=== PATIENT | female | born 1970 | race American Indian/Alaskan Native ===

== ENCOUNTER 2017-04-07 23:51 | Emergency (ER) | payer BC ==
[2017-04-08 01:33] LABS: Basophils % (Auto) 1.5 % (0.0-1.8); Eosinophils % (Auto) 1.9 % (0.0-4.3); Hematocrit 38.3 % (30.3-42.9); Hemoglobin 12.4 gm/dl (10.1-14.3); Mean Corpuscular HGB Conc 32 % (30-34); Mean Corpuscular Hemoglobin 26 pg (28-32); Mean Corpuscular Volume 82 fl (79-97); Platelet Count 176 K/mm3 (140-440); White Blood Count 7.4 K/mm3 (4.5-11.0)
[2017-04-08 01:49] LABS: Anion Gap 14 mmol/L; BUN/Creatinine Ratio 21.42; Blood Urea Nitrogen 15 mg/dL (7-17); Calcium 9.2 mg/dL (8.4-10.2); Carbon Dioxide 27 mmol/L (22-30); Chloride 104.7 mmol/L (98-107); Glucose 120 mg/dL (65-100); Sodium 142 mmol/L (137-145)
[2017-04-08] MEDS ORDERED: TORADOL IM ONE (03:24)
[2017-04-08] MEDS ORDERED: TYLENOL PO ONE (03:24)
--- NOTE | 2017-04-08 03:24 | Emergency Department Report ---
ED General Adult HPI - General Chief complaint: Extremity Injury, Lower Stated complaint: L FOOT PAIN Time Seen by Provider: 04/08/17 03:17 Source: patient, RN notes reviewed Mode of arrival: Ambulatory Limitations: No Limitations - History of Present Illness Initial comments: This is a 46-year-old female. She is previously unknown to me. She reports that she is not . She presents to the ER with left great toe pain and left dorsal toe pain. The pain is sharp. It increases with palpation and range of motion. It decreases with rest. She thinks the left toe is slightly more swollen than the right toe. There is no history of gout. There is no history of trauma. No fevers or chills. No headache, neck pain, chest pain, abdominal pain or shortness of breath. Patient reports no recent dietary indiscretions. -: Gradual Location: left, lower extremity Radiation: non-radiation Severity scale (0 -10): 8 Quality: aching Consistency: constant Improves with: rest Worsens with: movement Associated Symptoms: denies other symptoms - Related Data Home Medications Medication Instructions Recorded Confirmed Last Taken Amitriptyline [Elavil] 10 mg PO DAILY 04/08/17 04/08/17 1 Day Ago Propranolol HCl 80 mg PO BID 04/08/17 04/08/17 1 Day Ago Previous Rx's Medication Instructions Recorded Last Taken Type Acetaminophen [Tylenol Arthritis] 650 mg PO Q6HR PRN #30 tablet.er 04/08/17 Unknown Rx Doxycycline [Vibramycin CAP] 100 mg PO Q12HR #10 capsule 04/08/17 Unknown Rx Fluconazole [Diflucan TAB] 150 mg PO ONCE #2 tablet 04/08/17 Unknown Rx Ibuprofen [Motrin] 600 mg PO Q8H PRN #20 tablet 04/08/17 Unknown Rx Allergies Allergy/AdvReac Type Severity Reaction Status Date / Time codeine Allergy Unknown Verified 02/16/14 19:32 latex Allergy Rash Verified 02/16/14 19:32 metoclopramide HCl Allergy Unknown Verified 02/16/14 19:32 [From Reglan] pineapple [Pineapple] Allergy Swelling Verified 02/16/14 19:32 ED Review of Systems ROS: Stated complaint: L FOOT PAIN Other details as noted in HPI Constitutional: denies: fever Eyes: denies: eye discharge, vision change ENT: denies: epistaxis Respiratory: denies: cough Cardiovascular: denies: chest pain Gastrointestinal: denies: abdominal pain Genitourinary: as per HPI Musculoskeletal: arthralgia, myalgia Neurological: as per HPI ED Past Medical Hx - Past Medical History Hx Hypertension: Yes Hx Headaches / Migraines: Yes Additional medical history: IBS - Surgical History Hx Cholecystectomy: Yes Additional Surgical History: 2 c-sections, tubal, bilat knee surg. HYSTERECTOMY - Social History Smoking Status: Never Smoker Substance Use Type: None - Medications Home Medications: Home Medications Medication Instructions Recorded Confirmed Last Taken Type Acetaminophen [Tylenol Arthritis] 650 mg PO Q6HR PRN #30 tablet.er 04/08/17 Unknown Rx Amitriptyline [Elavil] 10 mg PO DAILY 04/08/17 04/08/17 1 Day Ago History Doxycycline [Vibramycin CAP] 100 mg PO Q12HR #10 capsule 04/08/17 Unknown Rx Fluconazole [Diflucan TAB] 150 mg PO ONCE #2 tablet 04/08/17 Unknown Rx Ibuprofen [Motrin] 600 mg PO Q8H PRN #20 tablet 04/08/17 Unknown Rx Propranolol HCl 80 mg PO BID 04/08/17 04/08/17 1 Day Ago History ED Physical Exam - General Limitations: No Limitations General appearance: alert, in no apparent distress - Head Head exam: Present: atraumatic, normocephalic - Eye Eye exam: Present: normal appearance, EOMI. Absent: nystagmus - ENT ENT exam: Present: normal exam, normal orophraynx, mucous membranes moist, normal external ear exam - Neck Neck exam: Present: normal inspection, full ROM - Respiratory Respiratory exam: Present: normal lung sounds bilaterally. Absent: respiratory distress, wheezes, rales, rhonchi, stridor - Cardiovascular Cardiovascular Exam: Present: regular rate, normal rhythm, normal heart sounds. Absent: systolic murmur, diastolic murmur, rubs, gallop - GI/Abdominal GI/Abdominal exam: Present: soft, normal bowel sounds. Absent: distended, tenderness, guarding, rebound, rigid - Extremities Exam Extremities exam: Present: tenderness (the compartments are soft. 2+ pulses are noted in 4 extremities. There is no redness, pus or streaking. The left great toe is somewhat tender on the dorsal aspect of the skin. No obvious cellulitis or abscess.), normal capillary refill, other. Absent: calf tenderness - Back Exam Back exam: Present: normal inspection, full ROM. Absent: tenderness, CVA tenderness (R), CVA tenderness (L), muscle spasm, paraspinal tenderness, vertebral tenderness - Neurological Exam Neurological exam: Present: alert, oriented X3, normal gait, other (Extraocular movements intact. Tongue midline. No facial droop. Facial sensation intact to light touch in the V1, V2, V3 distribution bilaterally. 5 and 5 strength in 4 extremities.. Sensation is intact to light touch in 4 extremities.). Absent : motor sensory deficit - Psychiatric Psychiatric exam: Present: normal affect, normal mood - Skin Skin exam: Present: warm, dry, intact, normal color. Absent: rash ED Course Vital Signs 04/08/17 04/08/17 00:12 04:14 Temperature 98.4 F 98.7 F Pulse Rate 86 66 Respiratory 18 18 Rate Blood Pressure 159/96 Blood Pressure 159/96 169/95 [Left] O2 Sat by Pulse 100 100 Oximetry ED Medical Decision Making - Lab Data Result diagrams: 04/08/17 01:18 04/08/17 01:18 Vital Signs 04/08/17 04/08/17 00:12 04:14 Temperature 98.4 F 98.7 F Pulse Rate 86 66 Respiratory 18 18 Rate Blood Pressure 159/96 Blood Pressure 159/96 169/95 [Left] O2 Sat by Pulse 100 100 Oximetry Lab Results 04/08/17 04/08/17 Range/Units 01:18 01:18 WBC 7.4 (4.5-11.0) K/mm3 RBC 4.70 (3.65-5.03) M/mm3 Hgb 12.4 (10.1-14.3) gm/dl Hct 38.3 (30.3-42.9) % MCV 82 (79-97) fl MCH 26 L (28-32) pg MCHC 32 (30-34) % RDW 14.0 (13.2-15.2) % Plt Count 176 (140-440) K/mm3 Lymph % (Auto) 23.1 (13.4-35.0) % [place] % (Auto) 9.3 H (0.0-7.3) % Eos % (Auto) 1.9 (0.0-4.3) % Baso % (Auto) 1.5 (0.0-1.8) % Lymph # 1.7 (1.2-5.4) K/mm3 [place] # 0.7 (0.0-0.8) K/mm3 Eos # 0.1 (0.0-0.4) K/mm3 Baso # 0.1 (0.0-0.1) K/mm3 Seg Neutrophils % 64.2 (40.0-70.0) % Seg Neutrophils # 4.7 (1.8-7.7) K/mm3 Sodium 142 (137-145) mmol/L Potassium 4.0 (3.6-5.0) mmol/L Chloride 104.7 (98-107) mmol/L Carbon Dioxide 27 (22-30) mmol/L Anion Gap 14 mmol/L BUN 15 (7-17) mg/dL Creatinine 0.7 (0.7-1.2) mg/dL Estimated GFR > 60 ml/min BUN/Creatinine Ratio 21.42 % Glucose 120 H (65-100) mg/dL Calcium 9.2 (8.4-10.2) mg/dL - Radiology Data Radiology results: image reviewed interpreted by me: X-ray of the left foot is negative for acute disease - Medical Decision Making Differential diagnosis: Arthritis, gout, cellulitis, ingrown toenail Assessment and plan: 46-year-old female with painful left toe. No history of gout. No recent dietary indiscretions. The toe is not especially warm. It is somewhat tender. The compartments are soft. They be early paronychia versus early ingrown toenail, versus early abscess versus arthritis. I don't with the patient will benefit from incision and drainage at this time. She will be made weightbearing as tolerated, hard sole shoe, crutches, pain medication, doxycycline to be given. Patient requested Diflucan. She will be instructed to follow-up with outpatient podiatry. Critical care attestation.: If time is entered above; I have spent that time in minutes in the direct care of this critically ill patient, excluding procedure time. ED Disposition Clinical Impression: Pain of left great toe Disposition: DC-01 TO HOME OR SELFCARE Is pt being admited?: No Does the pt Need Aspirin: No Condition: Stable Instructions: Acute Gouty Arthritis (ED), Rheumatoid Arthritis (ED), Arthralgia (ED) Additional Instructions: Take pain medication as directed. Take antibiotics as directed. Follow up with either an orthopedist or pricing strategist within the next week. Symptoms may be coming from gout, pseudogout, or early infection. Apply warm compresses to the affected area, and avoid strenuous physical activity. Return to the ER right away with new pain, worsened pain, migration of pain, fevers or chills, intractable nausea or vomiting, confusion, inability to tolerate liquid feeds. Wear loose fitting shoes. When taking the doxycycline, do not take on an empty stomach, and avoid exposure to sunlight. Prescriptions: Acetaminophen [Tylenol Arthritis] 650 mg PO Q6HR PRN #30 tablet.er PRN Reason: Pain Doxycycline [Vibramycin CAP] 100 mg PO Q12HR #10 capsule Fluconazole [Diflucan TAB] 150 mg PO ONCE #2 tablet Ibuprofen [Motrin] 600 mg PO Q8H PRN #20 tablet PRN Reason: Pain Referrals: PRIMARY CARE, [Primary Care Provider] - 3-5 Days JORDYN DOMINGUEZ DPM [Staff Physician] - 3-5 Days RAFAELA WANG DPM [Staff Physician] - 3-5 Days
[2017-04-08] MEDS ORDERED: TORADOL ONE (03:45)
[2017-04-08 04:15] VITALS: BP 169/95
--- NOTE | 2017-04-08 09:52 | XRay Report ---
LEFT FOOT, 3 VIEWS History: Left foot pain. Findings: Mild osteopenia is suspected. No acute osseous injury or joint pathology is appreciated. The soft tissues are unremarkable. Impression: Mild osteopenia. No acute process appreciated.
== END 2017-04-08 05:11 | disposition home or self-care (01) ==
LOC: ED 23:51
DX: M79.675 Pain in left toe(s) (principal); G43.909 Migraine, unspecified, not intractable, without status migrainosus; Z91.040 Latex allergy status; Z88.8 Allergy status to other drugs, medicaments and biological substances; Z91.018 Allergy to other foods
CPT/HCPCS: 36415; 73630; 80048; 85025; 96372; 99284; J1885

== ENCOUNTER 2017-04-09 21:19 | Emergency (ER) | payer BC ==
[2017-04-09 22:55] LABS: Basophils % (Auto) 0.6 % (0.0-1.8); Eosinophils % (Auto) 2.9 % (0.0-4.3); Hematocrit 40.2 % (30.3-42.9); Mean Corpuscular HGB Conc 32 % (30-34); Mean Corpuscular Hemoglobin 26 pg (28-32); Mean Corpuscular Volume 82 fl (79-97); Platelet Count 186 K/mm3 (140-440); Red Blood Count 4.93 M/mm3 (3.65-5.03); White Blood Count 6.7 K/mm3 (4.5-11.0)
[2017-04-09 23:16] LABS: Anion Gap 16 mmol/L; Blood Urea Nitrogen 12 mg/dL (7-17); Calcium 9.2 mg/dL (8.4-10.2); Carbon Dioxide 27 mmol/L (22-30); Chloride 100.3 mmol/L (98-107); Erythrocyte Sedimentation Rate 13 mm/Hr (0-20); Glucose 89 mg/dL (65-100); Potassium 4.6 mmol/L (3.6-5.0); Sodium 139 mmol/L (137-145)
[2017-04-10] MEDS ORDERED: XYLOCAINE 1% 20 mL INFILTRATI ONE (01:02)
[2017-04-10] MEDS ORDERED: TORADOL IV ONE (01:07)
[2017-04-10] MEDS ORDERED: UNASYN/NS 3 GM/100 ML 3 GM/100 ML BAG IV ONE (01:08)
[2017-04-10] MEDS ORDERED: TYLENOL PO ONE (01:08)
--- NOTE | 2017-04-10 01:08 | Emergency Department Report ---
ED Extremity Problem HPI - General Chief complaint: Extremity Problem,Nontraumatic Stated complaint: L BIG TOE PAIN/WELLING/NUMBNESS Source: patient Mode of arrival: Ambulatory Limitations: No Limitations - History of Present Illness Initial comments: 46-year-old female past medical history hypertension presents with complaint of slightly increasing redness to left toe region. Patient states she was assessed in the ED yesterday and diagnosed with cellulitis versus gout. Patient states that area of redness has slightly increased since yesterday. Denies any fever or chills no visible purulent drainage. Patient is ambulatory without assistance. Patient states she had an x-ray and some lab work done yesterday. Visible small patch of erythema on top of left great toe extending to mid foot MD Complaint: extremity pain (left great toe pain) Onset/Timin -: days(s) Location: left, lower extremity History of Same: Yes Severity scale (0 -10): 4 Quality: aching Consistency: constant Improves with: medication Worsens with: palpation - Related Data Home Medications Medication Instructions Recorded Confirmed Last Taken Amitriptyline [Elavil] 10 mg PO DAILY 04/08/17 04/08/17 1 Day Ago Propranolol HCl 80 mg PO BID 04/08/17 04/08/17 1 Day Ago Previous Rx's Medication Instructions Recorded Last Taken Type Acetaminophen [Tylenol Arthritis] 650 mg PO Q6HR PRN #30 tablet.er 04/08/17 Unknown Rx Doxycycline [Vibramycin CAP] 100 mg PO Q12HR #10 capsule 04/08/17 Unknown Rx Fluconazole [Diflucan TAB] 150 mg PO ONCE #2 tablet 04/08/17 Unknown Rx Ibuprofen [Motrin] 600 mg PO Q8H PRN #20 tablet 04/08/17 Unknown Rx HYDROcodone/APAP 5-325 [[place] 1 each PO Q6HR PRN #6 tablet 04/10/17 Unknown Rx 5/325] Sulfamethoxazole/Trimethoprim 1 each PO BID #14 tablet 04/10/17 Unknown Rx [Bactrim DS TAB] Allergies Allergy/AdvReac Type Severity Reaction Status Date / Time codeine Allergy Unknown Verified 02/16/14 19:32 latex Allergy Rash Verified 02/16/14 19:32 metoclopramide HCl Allergy Unknown Verified 02/16/14 19:32 [From Reglan] pineapple [Pineapple] Allergy Swelling Verified 02/16/14 19:32 ED Review of Systems ROS: Stated complaint: L BIG TOE PAIN/WELLING/NUMBNESS Other details as noted in HPI Constitutional: denies: chills, fever Eyes: denies: eye pain, eye discharge, vision change ENT: denies: ear pain, throat pain Respiratory: denies: cough, shortness of breath, wheezing Cardiovascular: denies: chest pain, palpitations Endocrine: no symptoms reported Gastrointestinal: denies: abdominal pain, nausea, diarrhea Genitourinary: denies: urgency, dysuria, discharge Musculoskeletal: as per HPI. denies: back pain, joint swelling, arthralgia Skin: denies: rash, lesions Neurological: denies: headache, weakness, paresthesias Psychiatric: denies: anxiety, depression Hematological/Lymphatic: denies: easy bleeding, easy bruising ED Past Medical Hx - Past Medical History Hx Hypertension: Yes Hx Headaches / Migraines: Yes Additional medical history: IBS - Surgical History Hx Cholecystectomy: Yes Additional Surgical History: 2 c-sections, tubal, bilat knee surg. HYSTERECTOMY - Social History Smoking Status: Never Smoker Substance Use Type: Alcohol - Medications Home Medications: Home Medications Medication Instructions Recorded Confirmed Last Taken Type Acetaminophen [Tylenol Arthritis] 650 mg PO Q6HR PRN #30 tablet.er 04/08/17 Unknown Rx Amitriptyline [Elavil] 10 mg PO DAILY 04/08/17 04/08/17 1 Day Ago History Doxycycline [Vibramycin CAP] 100 mg PO Q12HR #10 capsule 04/08/17 Unknown Rx Fluconazole [Diflucan TAB] 150 mg PO ONCE #2 tablet 04/08/17 Unknown Rx Ibuprofen [Motrin] 600 mg PO Q8H PRN #20 tablet 04/08/17 Unknown Rx Propranolol HCl 80 mg PO BID 04/08/17 04/08/17 1 Day Ago History HYDROcodone/APAP 5-325 [[place] 1 each PO Q6HR PRN #6 tablet 04/10/17 Unknown Rx 5/325] Sulfamethoxazole/Trimethoprim 1 each PO BID #14 tablet 04/10/17 Unknown Rx [Bactrim DS TAB] ED Physical Exam - General Limitations: No Limitations General appearance: alert, in no apparent distress - Head Head exam: Present: atraumatic, normocephalic - Eye Eye exam: Present: normal appearance, PERRL, EOMI - ENT ENT exam: Present: mucous membranes moist - Neck Neck exam: Present: normal inspection - Respiratory Respiratory exam: Present: normal lung sounds bilaterally. Absent: respiratory distress - Cardiovascular Cardiovascular Exam: Present: regular rate, normal rhythm. Absent: systolic murmur, diastolic murmur, rubs, gallop - GI/Abdominal GI/Abdominal exam: Present: soft, normal bowel sounds - Extremities Exam Extremities exam: Present: normal inspection - Expanded Lower Extremity Exam Left Hip exam: Present: normal inspection, full ROM Upper Leg exam: Present: normal inspection, full ROM Knee exam: Present: normal inspection, full ROM Lower Leg exam: Present: normal inspection, full ROM Ankle exam: Present: normal inspection, full ROM Foot/Toe exam: Present: full ROM, tenderness, erythema (small patch of erythema on top of left great toe palpable fluctuance extending to mid foot. Minimal swelling.) Neuro vascular tendon exam: Present: no vascular compromise (distal dorsalis pedis and posterior tibial pulses are intact) Gait: Positive: antalgic 1 - This is the patch of erythema. I marked the borders with a skin pen. - Back Exam Back exam: Present: normal inspection - Neurological Exam Neurological exam: Present: alert, oriented X3, CN II-XII intact, normal gait - Psychiatric Psychiatric exam: Present: normal affect, normal mood - Skin Skin exam: Present: warm, dry, intact, normal color. Absent: rash ED Course Vital Signs 04/09/17 04/10/17 22:00 04:11 Temperature 98.7 F Pulse Rate 86 85 Respiratory 18 18 Rate Blood Pressure 153/95 182/101 [Right] O2 Sat by Pulse 100 100 Oximetry ED Medical Decision Making - Lab Data Result diagrams: 04/09/17 22:28 04/09/17 22:28 - Medical Decision Making A/P: Left toe cellulitis/dorsal foot cellulitis versus gout flare 1-patient was seen 24 hours ago states that area of redness has spread to upper forefoot. Patient denies any fevers chills no pus drainage. States that redness and erythema at toe has become more significant than it was originally. Distal sensation and blood flow is intact on clinical exam 2-on examination there is no visible abscess head or purulence/fluctance, tiny puncture made with a 20-gauge needle, NO pus drainage from site (top of toe near nail edge). 3-will add Bactrim to course of antibiotics. will give a few [place] patient states she has taken [place] with no adverse reaction the past. 4-borders of cellulitis and erythema marked. I advised patient to return to the ED for 48 hour wound check if the area of erythema remains the same or if it progresses beyond borders. 5- follow-up with podiatry/orthopedics 6-labs and imaging is unremarkable Critical care attestation.: If time is entered above; I have spent that time in minutes in the direct care of this critically ill patient, excluding procedure time. ED Disposition Clinical Impression: Cellulitis of toe of left foot Disposition: TO HOME OR SELFCARE Is pt being admited?: No Does the pt Need Aspirin: No Condition: Stable Instructions: Cellulitis (ED), Acute Gouty Arthritis (ED) Additional Instructions: Patient advised to return to the ED for 48 hour wound check Prescriptions: HYDROcodone/APAP 5-325 [[place] 5/325] 1 each PO Q6HR PRN #6 tablet PRN Reason: Pain Sulfamethoxazole/Trimethoprim [Bactrim DS TAB] 1 each PO BID #14 tablet Referrals: JORDYN DOMINGUEZ DPM [Staff Physician] - 3-5 Days RAFAELA CERDA MD [Staff Physician] - 3-5 Days Forms: Work/School Release Form(ED) Time of Disposition: 03:38
[2017-04-10] MEDS ORDERED: NACL 0.9% 500 ML 500 ML IV ONE (01:09)
[2017-04-10 04:11] VITALS: BP 182/101
== END 2017-04-10 04:32 | disposition home or self-care (01) ==
LOC: ED 21:19
DX: L03.032 Cellulitis of left toe (principal); I10 Essential (primary) hypertension; G43.909 Migraine, unspecified, not intractable, without status migrainosus; Z88.6 Allergy status to analgesic agent; Z91.018 Allergy to other foods; Z91.040 Latex allergy status
CPT/HCPCS: 36415; 80048; 82140; 85025; 85652; 86140; 96365; 96375; 99283; J0295; J1885; J7040

== ENCOUNTER 2018-12-20 13:39 | Outpatient (CLI) | payer OTHER ==
--- NOTE | 2018-12-23 08:41 | Mammography Report ---
BILATERAL DIGITAL SCREENING MAMMOGRAM with CAD: 12/20/18 13:39:00 CLINICAL: Routine screening. COMPARISON:05/03/15 FINDINGS: The breasts are heterogeneously dense, which may obscure small masses. A right asymmetry on the CC view requires additional imaging.No architectural distortion or suspicious calcifications.The left breast is negative. IMPRESSION: Right asymmetry requiring further workup. BI-RADS CATEGORY: 0 -- Additional Imaging Evaluation Required RECOMMENDATION: Recall for right lateralmedial, rolled CC , spot magnification CC views and right breast ultrasound if needed. ACR BI-RADS MAMMOGRAPHIC CODES: 0 = Needs additional imaging evaluation; 1 = Negative; 2 = Benign; 3 = Probably benign; 4 = Suspicious; 5 = Malignant; 6 = Known biopsy-proven malignancy COMMENT: 1. Dense breast tissue, i.e., adenosis, fibrocystic changes, etc., may obscure an underlying neoplasm. 2. Approximately 10% of cancers are not detected with mammography. 3. A negative mammography report should not delay biopsy if a clinically suspicious mass is present. COMMENT: Patient follow-up letters are generated via our [employer] application.
== END 2018-12-20 13:40 | disposition home or self-care (01) ==
LOC: MAMMO 13:39
PROVIDERS: ATTEND Internal Medicine
DX: Z12.31 Encounter for screening mammogram for malignant neoplasm of breast (principal); I10 Essential (primary) hypertension; Z90.710 Acquired absence of both cervix and uterus; Z90.49 Acquired absence of other specified parts of digestive tract
CPT/HCPCS: 77067

== ENCOUNTER 2019-01-01 08:05 | Outpatient (CLI) | payer OTHER ==
--- NOTE | 2019-01-01 08:43 | Mammography Report ---
Right mammogram: Call back for right asymmetry. Additional CC and lateral compression imaging demonstrates an essentially unremarkable but moderately dense fibroglandular pattern. Additional images are unchanged compared to her prior exam in April 2015. Impression: Stable right breast pattern. No suspicious findings. Recommendation: Annual mammogram followup. BI-RADS CATEGORY: 1 = Negative ACR BI-RADS MAMMOGRAPHIC CODES: 0 = Needs additional imaging evaluation; 1 = Negative; 2 = Benign; 3 = Probably benign; 4 = Suspicious; 5 = Malignant; 6 = Known biopsy-proven malignancy COMMENT: 1. Dense breast tissue, i.e., adenosis, fibrocystic changes, etc., may obscure an underlying neoplasm. 2. Approximately 10% of cancers are not detected with mammography. 3. A negative mammography report should not delay biopsy if a clinically suspicious mass is present.
== END 2019-01-01 08:06 | disposition home or self-care (01) ==
LOC: MAMMO 08:05
PROVIDERS: ATTEND Internal Medicine
DX: R92.2 Inconclusive mammogram (principal); I10 Essential (primary) hypertension; Z90.49 Acquired absence of other specified parts of digestive tract; Z90.710 Acquired absence of both cervix and uterus

== ENCOUNTER 2021-09-19 08:27 | Outpatient (CLI) | payer BC ==
--- NOTE | 2021-09-19 12:29 | Mammography Report ---
DIGITAL SCREENING MAMMOGRAM WITH CAD, 09/19/2021 CLINICAL INFORMATION / INDICATION: Routine screening mammography. TECHNIQUE: Digital bilateral 2D mammography was obtained in the craniocaudal and mediolateral obliqu e projections. This examination was interpreted with the benefit of Computer-Aided Detection analysis . COMPARISON: Prior mammogram 12/20/2018 FINDINGS: Breast Density: The breasts are heterogeneously dense, which may obscure small masses. No dominant mass, suspicious calcifications, or architectural distortion in either breast. There are stable benign-appearing calcifications in the right breast. There has been no significant c hange compared with the prior examination. IMPRESSION: No mammographic evidence of malignancy. Follow up recommendation: Routine yearly BI-RADS Category 2: Benign. A "normal" or negative report should not discourage follow up or biopsy of a clinically significant f inding. A written summary of these findings will be mailed to the patient. The patient will be entered into a mammography reporting system which will generate a reminder letter for the patient's next appointmen t at the appropriate interval. The [employer] recommends yearly mammograms starting at age 40 and continuing as l tejas as a woman is in good health. Breast MRI is recommended for women with an approximate 20-25% or greater lifetime risk of breast cancer, including women with a strong family history of breast or ova ran cancer or who have been treated for Hodgkin's disease. Signer Name: Anjana Merchant MD Signed: 09/19/2021 12:25 PM Workstation Name: [id number]
== END 2021-09-19 08:28 | disposition home or self-care (01) ==
LOC: SPVWC 08:27
PROVIDERS: ATTEND Internal Medicine
DX: Z12.31 Encounter for screening mammogram for malignant neoplasm of breast (principal); N64.89 Other specified disorders of breast
CPT/HCPCS: 77067